=== PATIENT | female | born 1940 | race Caucasian/White ===

== ENCOUNTER → 2017-03-10 | Outpatient (CLI) | payer MEDICARE, BC ==
[~2017-03-10] MED LIST: ASPIRIN EC81 MG PO; CITRACAL+D(315M1 TAB PO; COLACE100 MG PO; DILAUDID 2MG(HYD2 MG PO; LIPITOR40 MG PO; PRINIVIL OR ZES10 MG PO; TRIAMTERENE-HC1 EACH PO; TUMS REGULAR ST1 TAB PO; TYLENOL EXTRA500 MG PO; VITAMIN D1000 UNIT PO; XARELTO10 MG PO
== END | disposition disaster alternative care site (69) ==
LOC: GBCOE 10:15
DX: Z12.31 Encounter for screening mammogram for malignant neoplasm of breast (principal)
CPT/HCPCS: G0202